=== PATIENT | male | born 1985 | race African-American/Black ===

== ENCOUNTER 2022-07-05 12:59 | Emergency (ER) | payer MEDICAID ==
[~2022-07-05] VITALS: Ht 170.2 cm; Wt 77.0 kg
[2022-07-05 13:18] VITALS: BP 127/88
[2022-07-05] MEDS ORDERED: LIDOCAINE/PRILOCAINE CREAM 5 GM TUBE TOP STA (19:39)
[2022-07-05] MEDS ORDERED: LIDOCAINE HCL/EPINEPHRINE 1%-EPI 1:100,000 50 ML VIAL INFIL ONE (19:45)
[2022-07-05] MEDS ORDERED: LIDOCAINE HCL/EPINEPHRINE 1%-EPI 1:100,000 10 ML VIAL INFIL NR (20:00)
[2022-07-05] MEDS ORDERED: SULF1TAB48 MT (20:59)
== END 2022-07-05 21:17 | disposition home or self-care (01) ==
LOC: ER 12:59
DX: N45.4 Abscess of epididymis or testis (principal)
CPT/HCPCS: 10060; 99283; J3490; Z7610

== ENCOUNTER 2022-07-08 14:22 | Emergency (ER) | payer MEDICAID ==
[~2022-07-08] VITALS: Ht 170.2 cm; Wt 74.0 kg
[~2022-07-08 14:22] MED LIST: SULF1TAB48 MT
[2022-07-08 14:29] VITALS: BP 122/69
== END 2022-07-08 20:29 | disposition home or self-care (01) ==
LOC: ER 14:22
DX: Z48.00 Encounter for change or removal of nonsurgical wound dressing (principal)
CPT/HCPCS: 99281